=== PATIENT | female | born 1965 | race Caucasian/White ===

== ENCOUNTER 2020-03-17 12:17 | Emergency (ER) | payer SELFPAY ==
--- NOTE | 2020-03-17 13:40 | EDM.PDOC ---
ED HPI GENERAL MEDICAL PROBLEM - General Chief Complaint: Abdominal Pain Stated Complaint: ABDOMINAL SWELLING AND PAIN, VAGINAL BLEEDING, Time Seen by Provider: 03/17/20 12:47 Source of Information: Reports: Patient History Limitations: Reports: No Limitations - History of Present Illness INITIAL COMMENTS - FREE TEXT/NARRATIVE: HISTORY AND PHYSICAL: History of present illness: Patient is a 54-year-old female who presents to the emergency room with complaints of intermittent vaginal bleeding for 2 weeks. She states prior to this she has not had a menstrual period in over a year and a half. She states the vaginal bleeding is not heavy but was concerning since she had not had a menses in "so long". She has abstained from sexual intercourse for several years and does not have any concerns of STDs. She did just have a routine Pap smear/pelvic exam done a little less than a year ago which she states was normal. She does have some mild intermittent left lower quadrant pain and she is concerned she has an ovarian cyst. She has a sensation of her abdomen feeling bloated which has been ongoing for the past 2 to 3 months. Review of systems: As per history of present illness and below otherwise all systems reviewed and negative. Past medical history: As per history of present illness and as reviewed below otherwise noncontributory. Surgical history: As per history of present illness and as reviewed below otherwise noncontributory. Social history: See social history for further information Family history: As per history of present illness and as reviewed below otherwise noncontributory. Physical exam: General: Well-developed and well-nourished 54-year-old female. Alert and oriented. Nontoxic-appearing and in no acute distress. HEENT: Atraumatic, normocephalic, pupils equal and reactive bilaterally, negative for conjunctival pallor or scleral icterus, mucous membranes moist, TMs normal bilaterally, throat clear, neck supple, nontender, trachea midline. No drooling or trismus noted. No meningeal signs. No hot potato voice noted. Lungs: Clear to auscultation, breath sounds equal bilaterally, chest nontender. Heart: S1S2, regular rate and rhythm without overt murmur Abdomen: Soft, nondistended, nontender. Negative for masses or hepatosplenomegaly. Negative for costovertebral tenderness. Pelvis: Stable nontender. Mild left lower quadrant pain with palpation. No masses are noted. Skin: Intact, warm, dry. No lesions or rashes noted. Extremities: Atraumatic, moves all extremities per self without difficulty or deficits, negative for cords or calf pain. Neurovascular unremarkable. Neuro: Awake, alert, oriented. Cranial nerves II through XII unremarkable. Cerebellum unremarkable. Motor and sensory unremarkable throughout. Exam nonfocal. Notes: Lab work and ultrasound are unremarkable. Her vital signs are stable. U/S shows increased endometrial thickness of 1.5 cm. There is 2 small cysts within the left ovary measuring 2 cm and 1.9 cm. No free fluid is appreciated. We did discuss further evaluation with her NNP. Supportive care measures were reviewed and discussed. Voices understanding and is agreeable to plan of care. Denies any further questions or concerns at this time. Diagnostics: CBC, CMP, TSH, UA, Transvaginal US Therapeutics: None Prescription: None Impression: Dysfunctional uterine bleeding Ovarian Cyst Plan: 1. Please use Tylenol and/or Ibuprofen as needed for pain and fever management. 2. Get plenty of Rest. Encourage fluids to prevent dehydration. 3. Please follow up with your establish with an NNP for further evaluation and management. Return to the ED as needed as discussed. Definitive disposition and diagnosis as appropriate pending reevaluation and review of above. Left lower abdomen Pain Score (Numeric/FACES): 8 - Related Data Allergies Allergy/AdvReac Type Severity Reaction Status Date / Time No Known Allergies Allergy Verified 03/17/20 12:45 Home Meds: Home Meds . [No Known Home Meds] 03/17/20 [History] Past Medical History HEENT History: Reports: None Cardiovascular History: Reports: None Respiratory History: Reports: None Gastrointestinal History: Reports: None Genitourinary History: Reports: None NNP History: Reports: None Musculoskeletal History: Reports: None Neurological History: Reports: None Psychiatric History: Reports: None Endocrine/Metabolic History: Reports: Diabetes, Type II Hematologic History: Reports: None Immunologic History: Reports: None Oncologic (Cancer) History: Reports: None Dermatologic History: Reports: None - Infectious Disease History Infectious Disease History: Reports: Chicken Pox, Measles - Past Surgical History Head Surgeries/Procedures: Reports: None HEENT Surgical History: Reports: None Cardiovascular Surgical History: Reports: None Respiratory Surgical History: Reports: None GI Surgical History: Reports: None Female Surgical History: Reports: None Endocrine Surgical History: Reports: None Neurological Surgical History: Reports: None Musculoskeletal Surgical History: Reports: None Oncologic Surgical History: Reports: None Dermatological Surgical History: Reports: None Social & Family History - Family History Family Medical History: Noncontributory - Tobacco Use Smoking Status *Q: Current Every Day Smoker Years of Tobacco use: 43 Packs/Tins Daily: 1 - Caffeine Use Caffeine Use: Reports: None - Recreational Drug Use Recreational Drug Use: Yes Recreational Drug Type: Reports: Marijuana/Hashish Recreational Drug Use Frequency: Daily ED ROS GENERAL - Review of Systems Review Of Systems: Comprehensive ROS is negative, except as noted in HPI. ED EXAM, RENAL/ - Physical Exam Exam: See Below (See dictation) Course - Vital Signs Last Recorded V/S: Last Vital Signs Temp 96.8 F L 03/17/20 12:45 Pulse 67 03/17/20 13:50 Resp 16 03/17/20 13:50 BP 135/75 03/17/20 13:50 Pulse Ox 97 03/17/20 13:50 - Orders/Labs/Meds Labs: Laboratory Tests 03/17/20 03/17/20 03/17/20 Range/Units 13:10 13:10 13:15 WBC 8.81 (4.0-11.0) K/uL RBC 4.55 (4.30-5.90) M/uL Hgb 14.6 (12.0-16.0) g/dL Hct 43.4 (36.0-46.0) % MCV 95.4 (80.0-98.0) fL MCH 32.1 H (27.0-32.0) pg MCHC 33.6 (31.0-37.0) g/dL RDW Std Deviation 46.2 (28.0-62.0) fl RDW Coeff of Hilary 13 (11.0-15.0) % Plt Count 322 (150-400) K/uL MPV 9.20 (7.40-12.00) fL Neut % (Auto) 62.3 (48.0-80.0) % Lymph % (Auto) 29.5 (16.0-40.0) % [place] % (Auto) 6.8 (0.0-15.0) % Eos % (Auto) 1.2 (0.0-7.0) % Baso % (Auto) 0.2 (0.0-1.5) % Neut # (Auto) 5.5 (1.4-5.7) K/uL Lymph # (Auto) 2.6 H (0.6-2.4) K/uL [place] # (Auto) 0.6 (0.0-0.8) K/uL Eos # (Auto) 0.1 (0.0-0.7) K/uL Baso # (Auto) 0.0 (0.0-0.1) K/uL Nucleated RBC % 0.0 /100WBC Nucleated RBCs # 0 K/uL Sodium 139 (136-145) mmol/L Potassium 3.8 (3.5-5.1) mmol/L Chloride 102 (98-107) mmol/L Carbon Dioxide 27.9 (21.0-32.0) mmol/L BUN 17 (7.0-18.0) mg/dL Creatinine 0.9 (0.6-1.0) mg/dL Est Cr Clr Drug Dosing 75.55 mL/min Estimated GFR (MDRD) > 60.0 ml/min Glucose 143 H (74-106) mg/dL Calcium 8.7 (8.5-10.1) mg/dL Total Bilirubin 0.3 (0.2-1.0) mg/dL AST 15 (15-37) IU/L ALT 26 (14-63) IU/L Alkaline Phosphatase 93 (46-116) U/L Total Protein 6.9 (6.4-8.2) g/dL Albumin 3.6 (3.4-5.0) g/dL Globulin 3.3 (2.6-4.0) g/dL Albumin/Globulin Ratio 1.1 (0.9-1.6) TSH 3rd Generation 1.41 (0.36-3.74) uIU/mL Urine Color YELLOW Urine Appearance CLEAR Urine pH 5.5 (5.0-8.0) Ur Specific [place] >= 1.030 (1.001-1.035) Urine Protein NEGATIVE (NEGATIVE) mg/dL Urine Glucose (UA) NEGATIVE (NEGATIVE) mg/dL Urine Ketones NEGATIVE (NEGATIVE) mg/dL Urine Occult Blood NEGATIVE (NEGATIVE) Urine Nitrite NEGATIVE (NEGATIVE) Urine Bilirubin NEGATIVE (NEGATIVE) Urine Urobilinogen 0.2 (<2.0) EU/dL Ur Leukocyte Esterase NEGATIVE (NEGATIVE) Departure - Departure Time of Disposition: 14:11 Disposition: Home, Self-Care 01 Clinical Impression: Dysfunctional uterine bleeding Ovarian cyst Qualifiers: Laterality: left Qualified Code(s): N83.202 - Unspecified ovarian cyst, left side - Discharge Information Instructions: Ovarian Cyst, [id number], Dysfunctional Uterine Bleeding Referrals: PCP,None [Primary Care Provider] - Forms: ED Department Discharge Additional Instructions: The following information is given to patients seen in the emergency department who are being discharged to home. This information is to outline your options for follow-up care. We provide all patients seen in our emergency department with a follow-up referral. The need for follow-up, as well as the timing and circumstances, are variable depending upon the specifics of your emergency department visit. If you don't have a primary care physician on staff, we will provide you with a referral. We always advise you to contact your personal physician following an emergency department visit to inform them of the circumstance of the visit and for follow-up with them and/or the need for any referrals to a consulting specialist. The emergency department will also refer you to a specialist when appropriate. This referral assures that you have the opportunity for follow-up care with a specialist. All of these measure are taken in an effort to provide you with optimal care, which includes your follow-up. Under all circumstances we always encourage you to contact your private physician who remains a resource for coordinating your care. When calling for follow-up care, please make the office aware that this follow-up is from your recent emergency room visit. If for any reason you are refused follow-up, please contact the [facility] Emergency Department at and asked to speak to the emergency department charge nurse. [facility] [address] [place] [id number] [address] 1. Please use Tylenol and/or Ibuprofen as needed for pain and fever management. 2. Get plenty of Rest. Encourage fluids to prevent dehydration. 3. Please follow up with your establish with an NNP for further evaluation and management. Return to the ED as needed as discussed. Sepsis Event Note - Evaluation Sepsis Screening Result: No Definite Risk - Focused Exam Vital Signs: Vital Signs Temp Pulse Resp BP Pulse Ox 03/17/20 13:50 67 16 135/75 97 03/17/20 12:45 96.8 F L 74 18 135/66 98 Date Exam was Performed: 03/17/20 Time Exam was Performed: 14:09
[2020-03-17 13:50] LABS: BLOOD UREA NITROGEN,BUN 17 mg/dL (7.0-18.0); CARBON DIOXIDE,CO2 27.9 mmol/L (21.0-32.0); CHLORIDE,CL 102 mmol/L (98-107); GLUCOSE RANDOM 143 mg/dL (74-106); POTASSIUM,K 3.8 mmol/L (3.5-5.1); SODIUM,NA 139 mmol/L (136-145)
--- NOTE | 2020-03-17 14:07 | US ---
Pelvic ultrasound: Multiple real-time images were obtained transvaginally. Comparison: No prior pelvic imaging is available. Findings: Uterus is retroverted. Endometrial thickness measures up to 1.5 cm. No myometrial abnormality is appreciated. 2 cysts are noted within the left ovary measuring 2.0 cm and 1.9 cm. Right ovary appears within normal limits. No free fluid is appreciated. Measurements: Uterus: AP height 4.7 cm, transverse width 5.7 cm, length 7.6 cm. Right ovary: 2.5 x 2.5 x 1.4 cm Left ovary: 3.6 x 3.2 x 2.5 cm Impression: 1. Increased endometrial thickness of 1.5 cm. 2. 2 small cyst within the left ovary measuring 2.0 cm and 1.9 cm. Diagnostic code #3 This report was dictated in MDT
== END 2020-03-17 14:23 | disposition home or self-care (01) ==
LOC: MW.ED 12:17
DX: N83.202 Unspecified ovarian cyst, left side (principal); N93.8 Other specified abnormal uterine and vaginal bleeding; E11.9 Type 2 diabetes mellitus without complications; F17.210 Nicotine dependence, cigarettes, uncomplicated
CPT/HCPCS: 36415; 76830; 76830-26; 80053; 81003; 84443; 85025; 99283; 99284-25

== ENCOUNTER 2020-03-24 07:53 | Emergency (ER) | payer SELFPAY ==
[2020-03-24] MEDS ORDERED: Sodium Chloride 0.9% 10 ML Syringe FLUSH PRN (08:22)
[2020-03-24] MEDS ORDERED: Sodium Chloride 0.9% 2.5 ML Syringe FLUSH PRN (08:22)
[2020-03-24] MEDS ORDERED: Sodium Chloride 0.9% 1,000 ML IV ONE (08:23)
--- NOTE | 2020-03-24 08:26 | EDM.PDOC ---
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 She returned to the ED because she continues to have bleeding. Taking some sort of pain medicine at home which she cannot remember the name she denies any other medical problems there is no clotting disorder she is not on blood thinners she is not . Better or worse] Review of systems: As per history of present illness and below otherwise all systems reviewed and negative. Past medical history: As per history of present illness and as reviewed below otherwise noncontributory. Surgical history: As per history of present illness and as reviewed below otherwise noncontributory. Social history: No reported history of drug or alcohol abuse. Family history: As per history of present illness and as reviewed below otherwise noncontributory. Physical exam: HEENT: Atraumatic, normocephalic, pupils reactive, negative for conjunctival pallor or scleral icterus, mucous membranes moist, throat clear, neck supple, nontender, trachea midline. Lungs: Clear to auscultation, breath sounds equal bilaterally, chest nontender. Heart: S1S2, regular, negative for clicks, rubs, or JVD. Abdomen: Soft, nondistended, nontender. Negative for masses or hepatosplenomegaly. Negative for costovertebral tenderness. Pelvis: Stable nontender. Genitourinary: Deferred. Rectal: Deferred. Extremities: Atraumatic, negative for cords or calf pain. Neurovascular unremarkable. Neuro: Awake, alert, oriented. Cranial nerves II through XII unremarkable. Cerebellum unremarkable. Motor and sensory unremarkable throughout. Exam nonfocal. Diagnostics: [] Therapeutics: [] Impression: Vaginal bleeding [] Plan: Patient's vital signs will be reviewed her CBC and chemistry will be rechecked she will be given a liter of saline and she was offered pain medication she will then be reassessed. [] Definitive disposition and diagnosis as appropriate pending reevaluation and review of above. 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 Musculoskeletal History: Reports: None Neurological History: Reports: None Psychiatric History: Reports: None Endocrine/Metabolic History: Reports: Diabetes, Type II Hematologic History: Reports: None Immunologic History: Reports: None Oncologic (Cancer) History: Reports: None Dermatologic History: Reports: None - Infectious Disease History Infectious Disease History: Reports: Chicken Pox, Herpes - Past Surgical History Head Surgeries/Procedures: Reports: None HEENT Surgical History: Reports: None Cardiovascular Surgical History: Reports: None Respiratory Surgical History: Reports: None GI Surgical History: Reports: None Female Surgical History: Reports: None Endocrine Surgical History: Reports: None Neurological Surgical History: Reports: None Musculoskeletal Surgical History: Reports: None Oncologic Surgical History: Reports: None Dermatological Surgical History: Reports: None Social & Family History - Family History Family Medical History: Noncontributory - Tobacco Use Smoking Status *Q: Current Every Day Smoker Years of Tobacco use: 20 Packs/Tins Daily: 1 - Caffeine Use Caffeine Use: Reports: None - Recreational Drug Use Recreational Drug Use: Yes Drug Use in Last 12 Months: Yes Recreational Drug Type: Reports: Marijuana/Hashish Recreational Drug Use Frequency: Daily ED ROS GENERAL - Review of Systems Review Of Systems: See Below ED EXAM, GENERAL - Physical Exam Exam: See Below Course - Vital Signs Text/Narrative:: Her normal H&H is stable vital signs are stable patient did not want pain medication discharge home follow-up with OB Last Recorded V/S: Last Vital Signs Temp 36.4 C 03/24/20 08:09 Pulse 62 03/24/20 08:56 Resp 18 03/24/20 08:56 BP 117/66 03/24/20 08:56 Pulse Ox 97 03/24/20 08:56 - Orders/Labs/Meds Orders: Active Orders 24 hr Category Date Time Status Sodium Chloride 0.9% [Normal Saline] 1,000 ml Med 03/24/20 08:23 Active IV .Bolus Sodium Chloride 0.9% [Saline Flush] Med 03/24/20 08:22 Active 10 ml FLUSH ASDIRECTED PRN Sodium Chloride 0.9% [Saline Flush] Med 03/24/20 08:22 Active 2.5 ml FLUSH ASDIRECTED PRN Saline Lock Insert [OM.PC] Stat Oth 03/24/20 08:22 Ordered Medication Orders Sodium Chloride (Normal Saline) 1,000 mls @ 999 mls/hr IV .Bolus ONE Stop: 03/24/20 09:23 Last Admin: 03/24/20 08:31 Dose: 999 mls/hr Sodium Chloride (Saline Flush) 10 ml FLUSH ASDIRECTED PRN PRN Reason: Keep Vein Open Sodium Chloride (Saline Flush) 2.5 ml FLUSH ASDIRECTED PRN PRN Reason: Keep Vein Open Last Admin: 03/24/20 08:31 Dose: 2.5 ml Labs: Laboratory Tests 03/24/20 03/24/20 03/24/20 Range/Units 08:20 08:20 08:20 WBC 8.70 (4.0-11.0) K/uL RBC 4.72 (4.30-5.90) M/uL Hgb 15.1 (12.0-16.0) g/dL Hct 44.6 (36.0-46.0) % MCV 94.5 (80.0-98.0) fL MCH 32.0 (27.0-32.0) pg MCHC 33.9 (31.0-37.0) g/dL RDW Std Deviation 44.6 (28.0-62.0) fl RDW Coeff of Hilary 13 (11.0-15.0) % Plt Count 332 (150-400) K/uL MPV 9.50 (7.40-12.00) fL Neut % (Auto) 71.6 (48.0-80.0) % Lymph % (Auto) 22.2 (16.0-40.0) % [place] % (Auto) 4.8 (0.0-15.0) % Eos % (Auto) 1.1 (0.0-7.0) % Baso % (Auto) 0.3 (0.0-1.5) % Neut # (Auto) 6.2 H (1.4-5.7) K/uL Lymph # (Auto) 1.9 (0.6-2.4) K/uL [place] # (Auto) 0.4 (0.0-0.8) K/uL Eos # (Auto) 0.1 (0.0-0.7) K/uL Baso # (Auto) 0.0 (0.0-0.1) K/uL Nucleated RBC % 0.0 /100WBC Nucleated RBCs # 0 K/uL Sodium 136 (136-145) mmol/L Potassium 4.3 (3.5-5.1) mmol/L Chloride 102 (98-107) mmol/L Carbon Dioxide 27.4 (21.0-32.0) mmol/L BUN 6 L (7.0-18.0) mg/dL Creatinine 0.9 (0.6-1.0) mg/dL Est Cr Clr Drug Dosing 74.68 mL/min Estimated GFR (MDRD) > 60.0 ml/min Glucose 112 H (74-106) mg/dL Calcium 9.0 (8.5-10.1) mg/dL Total Bilirubin 0.3 (0.2-1.0) mg/dL AST 17 (15-37) IU/L ALT 23 (14-63) IU/L Alkaline Phosphatase 93 (46-116) U/L Total Protein 7.1 (6.4-8.2) g/dL Albumin 3.5 (3.4-5.0) g/dL Globulin 3.6 (2.6-4.0) g/dL Albumin/Globulin Ratio 1.0 (0.9-1.6) HCG, Qual NEGATIVE (NEG) Meds: Medications Generic Name Dose Route Start Last Admin Trade Name Freq PRN Reason Stop Dose Admin Sodium Chloride 1,000 mls @ 999 mls/hr 03/24/20 08:23 03/24/20 08:31 Normal Saline IV 03/24/20 09:23 999 mls/hr .Bolus ONE Administration Sodium Chloride 10 ml 03/24/20 08:22 Saline Flush FLUSH ASDIRECTED PRN Keep Vein Open Sodium Chloride 2.5 ml 03/24/20 08:22 03/24/20 08:31 Saline Flush FLUSH 2.5 ml ASDIRECTED PRN Administration Keep Vein Open Departure - Departure Time of Disposition: 09:23 Disposition: Home, Self-Care 01 Condition: Good Clinical Impression: Vaginal bleeding, Dysfunctional uterine bleeding - Discharge Information *PRESCRIPTION DRUG MONITORING PROGRAM REVIEWED*: Not Applicable *COPY OF PRESCRIPTION DRUG MONITORING REPORT IN PATIENT YULIA: Not Applicable Instructions: Abnormal Uterine Bleeding Referrals: PCP,None [Primary Care Provider] - Forms: ED Department Discharge Additional Instructions: The following information is given to patients seen in the emergency department who are being discharged to home. This information is to outline your options for follow-up care. We provide all patients seen in our emergency department with a follow-up referral. The need for follow-up, as well as the timing and circumstances, are variable depending upon the specifics of your emergency department visit. If you don't have a primary care physician on staff, we will provide you with a referral. We always advise you to contact your personal physician following an emergency department visit to inform them of the circumstance of the visit and for follow-up with them and/or the need for any referrals to a consulting specialist. The emergency department will also refer you to a specialist when appropriate. This referral assures that you have the opportunity for follow-up care with a specialist. All of these measure are taken in an effort to provide you with optimal care, which includes your follow-up. Under all circumstances we always encourage you to contact your private physician who remains a resource for coordinating your care. When calling for follow-up care, please make the office aware that this follow-up is from your recent emergency room visit. If for any reason you are refused follow-up, please contact the [facility] Emergency Department at and asked to speak to the emergency department charge [facility] [address] [place] [id number] [facility] [address] [place] [id number] Sepsis Event Note - Evaluation Sepsis Screening Result: No Definite Risk - Focused Exam Vital Signs: Vital Signs Temp Pulse Resp BP Pulse Ox 03/24/20 08:56 62 18 117/66 97 05/25/20 08:09 36.4 C 75 18 131/74 99 Date Exam was Performed: 03/24/20 Time Exam was Performed: 09:22 - My Orders Last 24 Hours: My Active Orders 03/24/20 08:22 Sodium Chloride 0.9% [Saline Flush] 10 ml FLUSH ASDIRECTED PRN Sodium Chloride 0.9% [Saline Flush] 2.5 ml FLUSH ASDIRECTED PRN Saline Lock Insert [OM.PC] Stat 03/24/20 08:23 Sodium Chloride 0.9% [Normal Saline] 1,000 ml IV .Bolus - Assessment/Plan Last 24 Hours: My Active Orders 03/24/20 08:22 Sodium Chloride 0.9% [Saline Flush] 10 ml FLUSH ASDIRECTED PRN Sodium Chloride 0.9% [Saline Flush] 2.5 ml FLUSH ASDIRECTED PRN Saline Lock Insert [OM.PC] Stat 03/24/20 08:23 Sodium Chloride 0.9% [Normal Saline] 1,000 ml IV .Bolus
[2020-03-24 09:03] LABS: BLOOD UREA NITROGEN,BUN 6 mg/dL (7.0-18.0); CARBON DIOXIDE,CO2 27.4 mmol/L (21.0-32.0); CHLORIDE,CL 102 mmol/L (98-107); GLUCOSE RANDOM 112 mg/dL (74-106); POTASSIUM,K 4.3 mmol/L (3.5-5.1); SODIUM,NA 136 mmol/L (136-145)
== END 2020-03-24 10:05 | disposition home or self-care (01) ==
LOC: MW.ED 07:53
DX: N93.8 Other specified abnormal uterine and vaginal bleeding (principal); F17.210 Nicotine dependence, cigarettes, uncomplicated; E11.9 Type 2 diabetes mellitus without complications
CPT/HCPCS: 36415; 80053; 84703; 85025; 99284; J7030; 99282

== ENCOUNTER 2020-05-27 07:34 | Day surgery (SDC) | payer SELFPAY ==
[~2020-05-27 07:34] MED LIST: Lidocaine 2% 5 ML SDV ONE; Midazolam 1 MG/ML 2 ML SDV ONE; Ondansetron 4 MG/2 ML SDV ONE; Propofol 200 MG/20 ML SDV ONE; fentaNYL 250 MCG/5 ML SDV ONE
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
[2020-05-27] MEDS ORDERED: Ketorolac 30 MG/ML SDV ONE (09:23)
--- NOTE | 2020-05-27 10:57 | PCM48HPAN ---
Post Anesthesia Note - EVALUATION WITHIN 48HRS OF ANESTHETIC Vital Signs in Normal Range: Yes Patient Participated in Evaluation: Yes Respiratory Function Stable: Yes Airway Patent: Yes Cardiovascular Function Stable: Yes Hydration Status Stable: Yes Pain Control Satisfactory: Yes Nausea and Vomiting Control Satisfactory: Yes Mental Status Recovered: Yes Vital Signs: Last Vital Signs Temp 96.6 F L 05/27/20 07:49 Pulse 67 05/27/20 07:49 Resp 14 05/27/20 07:49 BP 119/76 05/27/20 07:49 Pulse Ox 100 05/27/20 07:49
--- NOTE | 2020-05-27 13:02 | OR ---
SURGEON: Laura Juarez MD DATE OF PROCEDURE: 05/27/2020 PREOPERATIVE DIAGNOSIS: A 55-year-old with postmenopausal bleeding. POSTOPERATIVE DIAGNOSIS: A 55-year-old with postmenopausal bleeding. PROCEDURE: Diagnostic hysteroscopy with dilation and curettage. PRIMARY SURGEON: Laura Juarez MD ANESTHESIA: MAC. COMPLICATIONS: None. ESTIMATED BLOOD LOSS: 5 mL. FLUIDS: 800 mL LR. URINE OUTPUT: Bladder drained prior to procedure. SPECIMEN: Endometrial curetting. FLUID DEFICIT: 50 mL normal saline. FINDINGS: Exam under anesthesia revealed normal-sized uterus, normal contour, and normal bilateral adnexa. Hysteroscopy showed normal bilateral tubal ostia in uterine cavity. PROCEDURE IN DETAIL: The patient was taken to the operating room where MAC was administered. She was placed in dorsal lithotomy position with legs in Yellofins stirrups. An exam under anesthesia revealed a normal anteverted uterus. The patient was prepared and draped in normal sterile fashion. A Graves speculum was inserted into the vagina. An Allis clamp was used to grasp the anterior lip of the cervix. Uterus was sounded to 9 cm. Cervical os was dilated to accommodate the 5 mm hysteroscope using Hegar dilators. A 5 mm 30-degree hysteroscope was introduced under direct visualization and the uterus was distended with normal saline. The aforementioned findings were noted. The hysteroscope was then withdrawn. The uterus was curetted in a clockwise fashion until a gritty feeling was noted in all aspects of the uterus. The Allis clamp was removed from the cervix and good hemostasis was noted. The patient tolerated the procedure well. Sponge and instrument counts were correct x2. The patient was awakened from MAC and taken to the recovery room in stable condition. [id number] / [id number] /[id number]
== END 2020-05-27 11:13 ==
LOC: MW.SDS 07:34
PROVIDERS: ATTEND Obstetrics & Gynecology
DX: N85.00 Endometrial hyperplasia, unspecified (principal); F41.9 Anxiety disorder, unspecified; F32.9 Major depressive disorder, single episode, unspecified; E66.9 Obesity, unspecified; F17.210 Nicotine dependence, cigarettes, uncomplicated; E11.9 Type 2 diabetes mellitus without complications; Z79.899 Other long term (current) drug therapy; Z88.5 Allergy status to narcotic agent; Z68.31 Body mass index [BMI] 31.0-31.9, adult; Z87.42 Personal history of other diseases of the female genital tract
CPT/HCPCS: 36415; 58558; 84702; 85027; J0131; J1885; J2001; J2250; J2405; J2704; J3010; 00952; 88305

== ENCOUNTER 2021-08-22 10:14 | Emergency (ER) | payer MEDICAID ==
[2021-08-22] MEDS ORDERED: Ondansetron 4 MG Tab.DIS PO ONE (10:41)
[2021-08-22] MEDS ORDERED: Ketorolac 60 MG/2 ML SDV IM ONE (10:41)
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
--- NOTE | 2021-08-22 11:31 | CR ---
INDICATION: Fall, 3 view. TECHNIQUE: X-ray right hip, 2 views and a single view of the pelvis. COMPARISON: None available. FINDINGS: There is moderate to severe joint space narrowing of the right hip. There is marginal osteophyte formation with subchondral sclerosis. There are severe degenerative changes of the left hip with complete loss of the superior joint space and adju-ly-nlyk. There is associated subchondral sclerosis and cyst formation. There is mild remodeling of the left femoral head contour. Negative for acute fracture or dislocation. The pelvic ring is intact. The overlying soft tissues unremarkable. IMPRESSION: 1. Moderate to severe degenerative changes of the right hip. Severe degenerative changes of the left hip. 2. Negative for acute fracture or dislocation. Dictated by January Alvarado MD @ 08/22/2021 11:30:09 AM (Electronically Signed)
== END 2021-08-22 11:48 ==
LOC: MW.ED 10:14
DX: S00.83XA Contusion of other part of head, initial encounter (principal); M16.0 Bilateral primary osteoarthritis of hip; E11.9 Type 2 diabetes mellitus without complications; Z87.891 Personal history of nicotine dependence; Z96.643 Presence of artificial hip joint, bilateral; Y04.0XXA Assault by unarmed brawl or fight, initial encounter
CPT/HCPCS: 73502; 96372; 99284; A9270; J1885; 99283

== ENCOUNTER 2024-03-22 15:44 | Emergency (ER) | payer MEDICAID, OTHER ==
[2024-03-22 17:25] LABS: HEMATOCRIT 40.9 % (37.0-47.0); HEMOGLOBIN 13.9 g/dL (12.0-16.0); MEAN CORPUSCULAR HEMOGLOBIN 31.4 pg (28.0-32.0); MEAN CORPUSCULAR VOLUME 92.5 fL (83.0-99.0); MEAN PLATELET VOLUME 8.9 fL (9.4-12.3); PLATELET COUNT,PLT 289 K/uL (150-400); RED BLOOD CELL COUNT 4.42 M/uL (4.10-5.30); WHITE BLOOD CELL COUNT,WBC 7.73 K/uL (3.9-11.3)
[2024-03-22] MEDS: LORazepam 1 MG Tab PO STA (17:32)
[2024-03-22 17:59] LABS: A/G RATIO 0.8 (0.9-1.6); ACETAMINOPHEN <2.0 ug/mL; ALANINE AMINOTRANSFERASE,ALT 36 IU/L (14-63); ALBUMIN 3.1 g/dL (3.4-5.0); ALKALINE PHOSPHATASE 107 U/L (46-116); ASPARTATE AMNIOTRANSFERASE,AST 22 IU/L (15-37); BILIRUBIN TOTAL 0.2 mg/dL (0.2-1.0); BLOOD UREA NITROGEN,BUN 17 mg/dL (7.0-18.0); CALCIUM 8.8 mg/dL (8.5-10.1); CARBON DIOXIDE,CO2 27.3 mmol/L (21.0-32.0); CHLORIDE,CL 102 mmol/L (98-107); EST CRCL DRUG DOSING (CG) 61.86 mL/min; GLUCOSE RANDOM 106 mg/dL (74-106); MAGNESIUM 2.1 mg/dL (1.8-2.4); POTASSIUM,K 3.8 mmol/L (3.5-5.1); PROTEIN TOTAL,TP 6.8 g/dL (6.4-8.2); SALICYLATE 3.6 mg/dL (0.0-20.0); SODIUM,NA 139 mmol/L (136-145); TSH ULTRASENSITIVE 1.49 uIU/mL (0.36-3.74)
[2024-03-22 18:02] LABS: APPEARANCE,URINE CLEAR; BILIRUBIN,URINE NEGATIVE (NEGATIVE); COLOR,URINE YELLOW; GLUCOSE,URINE >=1000 mg/dL (NEGATIVE); KETONES,URINE NEGATIVE (NEGATIVE); LEUKOCYTE ESTERASE,URINE NEGATIVE (NEGATIVE); NITRITE,URINE NEGATIVE (NEGATIVE); OCCULT BLOOD,URINE NEGATIVE (NEGATIVE); PROTEIN,URINE NEGATIVE (NEGATIVE); UROBILINOGEN,URINE 0.2 EU/dL (<2.0)
[2024-03-22 18:12] LABS: AMPHETAMINES SCREEN, URINE PRESUMPTIVE POSITIVE (CUTOFF=500); BARBITURATE SCREEN,URINE NEGATIVE (CUTOFF=200); BENZODIAZEPINES SCREEN,URINE NEGATIVE (CUTOFF=150); BUPRENORPHINE SCREEN,URINE NEGATIVE (CUTOFF=10); METHADONE SCREEN, URINE NEGATIVE (CUTOFF=200); METHAMPHETAMINES SCREEN, URINE PRESUMPTIVE POSITIVE (CUTOFF=500); OXYCODONE SCREEN,URINE NEGATIVE (CUT0FF=100); PCP SCREEN,URINE NEGATIVE (CUTOFF=25); THC SCREEN,URINE 20 NG/ML PRESUMPTIVE POSITIVE (CUTOFF=50)
[2024-03-22 18:13] LABS: ESTIMATED GFR 65 mL/min (>60); ETHANOL BLOOD MEDICAL < 3.0 mg/dL
[2024-03-22] MEDS: Nicotine 21 MG/24 Hr Patch TRDERM STA (18:18)
[2024-03-22] MEDS ORDERED: Ziprasidone Mesylate 20 MG in Water For Injection, Sterile 1.2 ML IM STA (18:21)
[2024-03-22] MEDS: Water For Injection, Sterile 20 ML SDV INJECT ONE (18:24)
[2024-03-22] MEDS: Ziprasidone Mesylate 20 MG Vial IM ONE (18:24)
[2024-03-22 18:34] LABS: EOSINOPHILS ABSOLUTE MAN 0.08 K/uL (0.00-0.45); EOSINOPHILS PERCENT MAN 1 % (0-6); LYMPHOCYTES ABSOLUTE MAN 2.32 K/uL (1.00-4.80); LYMPHOCYTES PERCENT MAN 30 % (24-44); MONOCYTES PERCENT MAN 9 % (0-8); SEG NEUTROPHILS ABSOLUTE MAN 4.64 K/uL (1.80-7.70); SEG NEUTROPHILS PERCENT MAN 60 % (41-71)
[2024-03-22] MEDS: Ziprasidone Mesylate 20 MG Vial ONE (18:57)
[2024-03-22] MEDS: Haloperidol Lactate 5 MG/ML SDV IM STA (19:44)
[2024-03-22] MEDS: LORazepam 2 MG/ML SDV IM STA (19:44)
[2024-03-22] MEDS: diphenhydrAMINE 50 MG/ML SDV IM STA (19:44)
== END 2024-03-23 14:58 ==
LOC: MW.ED 15:44
DX: F60.0 Paranoid personality disorder (principal); F15.10 Other stimulant abuse, uncomplicated; E11.9 Type 2 diabetes mellitus without complications; F17.210 Nicotine dependence, cigarettes, uncomplicated; Z75.8 Other problems related to medical facilities and other health care; Z79.899 Other long term (current) drug therapy
CPT/HCPCS: 36415; 80053; 80143; 80179; 80305; 80307; 81003; 83735; 84443; 85025; 93005; 96372; 99285; A9270; J1200; J1630; J2060; J3486; 93010; J3490

== ENCOUNTER 2025-07-04 08:43 | Day surgery (SDC) | payer MEDICARE, OTHER ==
[~2025-07-04 08:43] MED LIST changes: -Lidocaine 2% 5 ML SDV ONE; -Midazolam 1 MG/ML 2 ML SDV ONE; -Ondansetron 4 MG/2 ML SDV ONE; -Propofol 200 MG/20 ML SDV ONE; +Sodium Chloride 0.9% 10 ML Syringe FLUSH PRN; +Sodium Chloride 0.9% 2.5 ML Syringe FLUSH PRN; -fentaNYL 250 MCG/5 ML SDV ONE
[2025-07-04] MEDS: Lactated Ringers 1,000 ML IV SCH (09:14)
[2025-07-04] MEDS ORDERED: propofoL 500 MG/50 ML 50 ML ONE (09:18)
[2025-07-04] MEDS ORDERED: Ketorolac 30 MG/ML SDV ONE (10:08)
[2025-07-04] MEDS ORDERED: Propofol 200 MG/20 ML SDV ONE ×2 (10:09→10:16)
[2025-07-04] MEDS ORDERED: fentaNYL 50 MCG/ML SDV ONE (10:43)
[2025-07-04] MEDS: fentaNYL 50 MCG/ML SDV IVPUSH ONE (10:44)
== END 2025-07-04 11:30 | disposition home or self-care (01) ==
LOC: MW.SDS 08:43
PROVIDERS: ATTEND Surgery
DX: Z12.11 Encounter for screening for malignant neoplasm of colon (principal); D12.3 Benign neoplasm of transverse colon; D12.5 Benign neoplasm of sigmoid colon; R13.10 Dysphagia, unspecified; K21.9 Gastro-esophageal reflux disease without esophagitis; K57.30 Diverticulosis of large intestine without perforation or abscess without bleeding; E11.9 Type 2 diabetes mellitus without complications; E66.9 Obesity, unspecified; I10 Essential (primary) hypertension; F17.210 Nicotine dependence, cigarettes, uncomplicated; Z80.0 Family history of malignant neoplasm of digestive organs; Z79.899 Other long term (current) drug therapy; Z68.36 Body mass index [BMI] 36.0-36.9, adult
CPT/HCPCS: 43239; 45380; 88305; J1885; J2003; J2704; J3010; J7120; 00813